=== PATIENT | female | born 1945 | race Caucasian/White ===

== ENCOUNTER → 2020-03-03 16:20 | Outpatient (CLI) | payer MEDICARE, SELFPAY ==
--- NOTE | ~2020-03-03 | MM_ITS ---
EXAMINATION: MM screening nancy BI w smiley HISTORY: Screening TECHNIQUE: Craniocaudal and mediolateral oblique 3-D tomosynthesis images were obtained and synthetic 2-D images were generated. CAD analysis was submitted and interpreted. COMPARISON: Comparison to multiple prior studies sequentially, with oldest reviewed study dated 08/09. BREAST PARENCHYMAL COMPOSITION: The breasts are heterogeneously dense, which may obscure small masses . FINDINGS: There is no evidence of suspicious mass, calcification, or architectural distortion to sugg est malignancy in either breast. There has been no suspicious interval change. IMPRESSION: 1. No mammographic evidence of malignancy. 2. Recommend routine screening mammography in one year. BI-RADS Category 1: Negative Reviewed, dictated and finalized at location A. FORCE DEVELOPMENT ASSISTANT
== END ==
DX: Z12.31 Encounter for screening mammogram for malignant neoplasm of breast (principal)
CPT/HCPCS: 77063; 77067

== ENCOUNTER → 2022-04-03 12:37 | Outpatient (CLI) | payer MEDICARE, SELFPAY ==
--- NOTE | ~2022-04-03 | MM_ITS ---
EXAMINATION: MM screening nancy BI w smiley HISTORY: Screening mammogram TECHNIQUE: Craniocaudal and mediolateral oblique 3-D tomosynthesis images were obtained and synthetic 2-D images were generated. CAD analysis was submitted and interpreted. COMPARISON: 03/03/2020, 11/14/2018, 10/22/2017 bilateral screening mammogram examinations BREAST PARENCHYMAL COMPOSITION: The breasts are heterogeneously dense, which may obscure small masses . FINDINGS: There is no evidence of suspicious mass, calcification, or architectural distortion to sugg est malignancy in either breast. There has been no suspicious interval change. IMPRESSION: 1. No mammographic evidence of malignancy. 2. Recommend routine screening mammography in one year. BI-RADS Category 1: Negative Reviewed, dictated and finalized at location A. TRY HUSBANDRY WORKER
== END ==
DX: Z12.31 Encounter for screening mammogram for malignant neoplasm of breast (principal)
CPT/HCPCS: 77063; 77067

== ENCOUNTER → 2022-11-05 10:59 | Outpatient (CLI) | payer MEDICARE, SELFPAY ==
--- NOTE | ~2022-11-05 | DEXA_ITS ---
Bone Density Report Name: KALYANI ROTH Age: 77 Sex: Female Ethnicity: White Date of : 1945 Indication: osteopenia; height loss; inflammatory bowel disease; postmenopausal Referring Provider: UNKNOWN, UNKNOWN Study: Bone densitometry was performed. Exam Date: November 05, 2022 Accession number: [id number] Bone Density: Region BMD T-score Z-score Classification AP Spine (L1, L2) 0.864 -1.0 1.2 Normal Femoral Neck (Left) 0.721 -1.2 0.9 Osteopenia Total Hip (Left) 0.809 -1.1 0.7 Osteopenia Femoral Neck (Right) 0.739 -1.0 1.1 Normal Total Hip (Right) 0.830 -0.9 0.9 Normal Total Hip Mean 0.820 -1.0 0.8 Normal World Health Organization criteria for BMD impression classify patients as: Normal (T-score at or above -1.0), Osteopenia (T-score between -1.0 and -2.5), or Osteoporosis (T-score at or below -2.5). 10-year Fracture Risk(1): Major Osteoporotic Fracture 10% Hip Fracture 1.7% Reported Risk Factors: [place] (), Neck BMD=0.721, BMI=26.0 (1) FRAX(R) Version 3.08. Fracture probability calculated for an untreated patient. Fracture probability may be lower if the patient has received treatment. Previous Exams: Region Exam Age BMD T-score BMD Change BMD Change Date g/cm2 vs Baseline vs Previous AP Spine(L1, L2) 11/05/2022 77 0.864 -1.0 -0.111* -0.039* 10/22/2017 72 0.903 -0.7 -0.072* -0.032* 03/04/2014 68 0.936 -0.4 -0.040* -0.040* 08/01/2006 60 0.975 0.0 Total Hip(Left) 11/05/2022 77 0.809 -1.1 -0.033* 0.017 10/22/2017 72 0.792 -1.2 -0.049* -0.028* 03/04/2014 68 0.820 -1.0 -0.022 -0.022 08/01/2006 60 0.842 -0.8 Total Hip(Right) 11/05/2022 77 0.830 -0.9 -0.031* 0.028* 10/22/2017 72 0.802 -1.1 -0.059* -0.014 03/04/2014 68 0.816 -1.0 -0.045* -0.045* 08/01/2006 60 0.861 -0.7 *Denotes significance at 95% confidence level, LSC for AP Spine = 0.022 g/cm2, LSC for Total Hip = 0.027 g/cm2 Clinical Information Provided by Patient: Has used the following medications: Vitamin D, Calcium, MULTI-VITAMIN Has the following medical conditions: Inflammatory bowel diseases Patient maximum height was 64 Menopause Age: 50 No regular weight bearing exercise Does not regularly consume dairy products Drinks caffeinated beverages Onset of menses at age 14 Number of children 1
== END ==
DX: Z78.0 Asymptomatic menopausal state (principal); M85.852 Other specified disorders of bone density and structure, left thigh
CPT/HCPCS: 77080

== ENCOUNTER 2024-12-21 13:11 | Outpatient (CLI) | payer MEDICARE, SELFPAY ==
--- NOTE | ~2024-12-21 | MM_ITS ---
EXAMINATION: MM screening nancy BI w smiley HISTORY: Screening TECHNIQUE: Craniocaudal and mediolateral oblique 3-D tomosynthesis images were obtained and synthetic 2-D images were generated. CAD analysis was submitted and interpreted. COMPARISON: Comparison to multiple prior studies sequentially, with oldest reviewed study dated 09/16/2016. BREAST PARENCHYMAL COMPOSITION: Dense: The breasts are extremely dense, which lowers the sensitivity of mammography. FINDINGS: There is no evidence of suspicious mass, calcification, or architectural distortion to suggest malignancy in either breast. There has been no suspicious interval change. IMPRESSION: 1. No mammographic evidence of malignancy. 2. Recommend routine screening mammography in one year. BI-RADS Category 1: Negative Reviewed, dictated and finalized at location B.
--- OUTSIDE RECORDS SUMMARY | 2024-12-21 15:11 | XMS_ITS | Encounter Summary ---
Author Organization [facility] Address [address] [place] [address] Care Team Providers Care Skewer Up Name Role Phone Ramon Junior MD Primary Care Provider [phone] Encounter Details Date Type Department Care Team (Latest Contact Info) Description 04/03/2001 Outpatient Historical HIS [facility] Trent Bailey MD [address] [facility] [address] [place] [address] SCREENING MAMM-MAILG NEOPL-OTHER (Primary Dx) Social History Tobacco Use Types Packs/Day Years Used Date Smoking Tobacco: Never Assessed Comments Unknown Sex and Gender Information Value Date Recorded Sex Assigned at Not on file 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
--- OUTSIDE RECORDS SUMMARY | 2024-12-21 15:11 | XMS_ITS | Encounter Summary ---
Author Organization [facility] Address 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
--- OUTSIDE RECORDS SUMMARY | 2024-12-21 15:11 | XMS_ITS | Clinical Summary ---
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 Gender Identity Not on file Sexual Orientation Not on file Plan of Treatment Health Maintenance Due Date Last Done Comments Hepatitis C 09/10/1965 DTaP, Tdap and Td Vaccines ( 1 - Tdap) 09/10/1966 Pneumococcal Vaccine: 50+ Ye ars (1 of 1 - PCV) 09/10/1997 Zoster Vaccines (1 of 2) 09/10/1997 Dexa Scan (General) 09/10/2012 RSV Immunization or 60+ Years (1 - 1-dose 75+ series) 09/10/2022 COVID-19 Vaccine ( - 2024-2 6 season) 2024 Influenza Adult (#1) 2024 Hepatitis A Vaccines Aged Out No long er eligible based on patient's age to complete this topic Meningococcal B Vaccine Aged Out No l onger eligible based on patient's age to complete this topic Meningococcal Vaccine Aged Out No elaine shanna eligible based on patient's age to complete this topic RSV Immunizations Under 20 Months Aged Out No longer eligible based on patient's age to complete this topic
--- OUTSIDE RECORDS SUMMARY | 2024-12-21 15:11 | XMS_ITS | Patient Health Record ---
Author Organization [email or web address] [facility] Address [address] [facility] [address] [place] [address] Care Team Providers Care Club Manager Name Role Phone Vernon TOLEDO, Ramon Primary Care Provider Bill Ruggiero Unavailable [phone] Reason For Referral No Information Plan Of Treatment No Information Insurance Providers Payer Name Payer Address Payer Phone Subscriber Number Group Number Insured Name Patient Relationship to Insured Coverage Start Date Coverage End Date [employer] Medicare Gold Advantage O [address] [place] [address] [id number] Gabrielle Beltrán Self - patient is the insured Medical (General) History Medical History History ICD Code Fatty Liver Crohn's Disease Surgical History Surgery Date(Month/Year) Back Surgery
--- OUTSIDE RECORDS SUMMARY | 2024-12-21 15:11 | XMS_ITS | Encounter Summary ---
Author Organization [facility] Address [address] [facility] [place] [address] Care Team Providers Care Brass Molder Helper Name Role Phone Unavailable Primary Care Provider Unavailabl e Encounter Details Date Type Department Care Team (Late st Contact Info) Description 06/24/2018 Lab Requisition [facility] Care [facility] [address] [facility] [place] [id number] Peg Simon MD [address] [facility] [address] [place] [address] Social History Tobacco Use Types Packs/Day Years Used Date Smoking Tobacco: Never Assessed Comments Unknown Sex and Gender Information Value Date Recorded Sex Assigned at Not on file Legal Sex Female 4:06 PM CDT Gender Identity Not on file Sexual Orientation Not on file documented as of this encounter Plan of Treatment Not on file documented as of this encounter Procedures Procedure Name Priority Date/Time Associated Diagnosis Comments DERMATOPATHOLOGY Routine 06/22/2018 12:0 0 AM CDT documented in this encounter Results * DERMATOPATHOLOGY (06/22/2018 12:00 AM CDT) Case Report Dermatopathology Report Case: [id number] Authorizing Provider: Peg Simon MD Collected: 06/22/2018 12:00 AM Pathologist: Pravin Guillen MD Received: 06/24/2018 06:15 AM Specimen: Skin, back 9 12:59 PM CDT DERMATOPATHOLOGY LABORATORY Final Diagnosis Specimen A. SKIN, back: BASAL CELL CARCINOMA, SUPERFICIAL MULTIFOCAL (C44.519) NOT PRESENT AT SAMPLED MARGIN 9 12:59 PM CDT DERMATOPATHOLOGY LABORATORY at 1259 CDT Clinical History [place] scaly papule, BCC. 9 12:59 PM CDT DERMATOPATHOLOGY LABORATORY Gross Description Specimen A: Received is one formalin filled container labeled with the patient's name and designated back. The specimen consists of a shave measuring [id number]. Jar 0. 12:59 PM [facility] DERMATOPATHOLOGY LABORATORY Microscopic Description Specimen A. SKIN, back: Attached to the undersurface of the epidermis, there are small aggregates of basaloid cells with a high nuclear to cytoplasmic ratio and peripheral palisading. This lesion is not present at the sampled margin of the specimen. 12:59 PM [facility] DERMATOPATHOLOGY LABORATORY Disclaimer An external and internal positive and negative controls are appropriate for the histochemical, immunohistochemical and immunofluorescence stain(s) in this case (if any), except where stated explicitly. The performance characteristics of the stain(s) cited in this report were developed and its performance characteristic determined by the Dermatopathology Laboratory at [facility], directed by Dr. Pierce Guillen. These tests need not be, and therefore are not, approved by the [place] Food and Drug Administration. The tests are used for clinical purposes. Billing Codes Specimen Charges Stain Charges 74074 1 12:59 PM T DERMATOPATHOLOGY LABORATORY Embedded Images 12:59 PM [facility] DERMATOPATHOLOGY LABORATORY Pathology/Cytolog y TISSUE SPECIMEN FROM SKIN / Unknown 06/22/2018 06/24/2018 6:15 AM CDT us Peg Simon MD LAB - PATHOLOGY/CYTOLOGY ORD ERABLES Final Result DERMATOPATHOLOGY LABORATORY [facility] - Department of Dermatology [address] [place] [address] [address] Lab [address] [place], [place] [address] [phone] documented in this encounter Visit Diagnoses Not on filedocumented in this encounter
--- OUTSIDE RECORDS SUMMARY | 2024-12-21 15:11 | XMS_ITS | Encounter Summary ---
Author Organization [facility] Address 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 [address] [place] [address] PCP - General 02/10/15 documented as of this encounter
--- OUTSIDE RECORDS SUMMARY | 2024-12-21 15:11 | XMS_ITS | Clinical Summary ---
Author Organization [facility] Address [address] [place] [address] Phone Care Team Providers Care Manufacturing Analyst Name Role Phone Ramon Junior MD Primary Care Provider Allergies Active Allergy Reactions Criticality Noted Date Comments Codeine Nausea and Vomiting Low 05/22/2016 Medications timolol (TIMOPTIC) 0.5 % solution Administer 1 Drop in both eyes daily. Active multivitamin (DAILY-AHSAN) tablet Take 1 Tablet by mouth daily. Active Fish Oil-Pelican-3 Fatty Acids 360-1,200 mg Capsule Take 1 Capsule by mouth 3 times daily. Active ZINC ACETATE ORAL Take by mouth daily. Active traMADol (ULTRAM) 50 mg tablet Take 2 Tablets (100 mg) by mouth every 6 hours as needed for Pain. 60 Tablet 7 Active docusate sodium (COLACE) 100 mg capsule Take 1 Capsule (100 mg) by mouth 2 times daily. 60 Capsule 6 7 Active diazePAM (VALIUM) 5 mg tablet Take 1 Tablet (5 mg) by mouth every 6 hours as needed for Spasm. 60 Tablet 7 Active HYDROcodone-lexy taminophen (NORCO) 10-325 mg Tablet Take 1 Tablet by mouth every 4 hours as needed (Pain). Max Daily Amount: 6 Tablets 60 Tablet 7 Active docusate sodium (COLACE) 100 mg capsule Take 1 Capsule (100 mg) by mouth 2 times daily. 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 Gender Identity Not on file Sexual Orientation Not on file Last Filed Vital Signs Vital Sign Reading Time Taken Comments Blood Pressure 119/70 06/10/2016 9:04 AM CDT Pulse 97 06/10/2016 9:04 AM CDT Temperature 36.6 C (97.9 F) 06/10/2016 9:04 AM CDT Respiratory Rate 16 06/10/2016 9:04 AM CDT Oxygen Saturation 100% 06/10/2016 9:04 AM CDT Inhaled Oxygen Concentration - - Weight 59 kg (130 lb) 06/07/2016 9:40 AM CDT Height 160 cm (5' 3) 05/22/2016 10:27 AM CDT Body Mass Index 23.03 05/22/2016 10:27 AM CDT Plan of Treatment Health Maintenance Due Date Last Done Comments DTAP/TDAP/TD VACCINES (1 - Tdap) 09/10/1966 ZOSTER VACCINE (1 of 2) 09/10/1997 OSTEOPOROSIS SCREENING 09/10/2012 PNEUMOCOCCAL VACCINE 50+ YEA RS (2 of 2 - PCV20 or PCV21) 06/10/2017 06/10/2016 RSV VACCINE (60+ or ) (1 - 1-dose 75+ series) 09/10/2022 INFLUENZA VACCINE (#1) 2024 03/22/2016 Medical Devices Implanted Type Area Provider Relations Rep Device Identifier Shelf Expiration Date Model / Serial / Lot [place] Dbm 8x10cm [id number] - [id number] Implanted:Qty: 1 on 06/07/2016 by Jairo Carr MD at [facility] Bone N/A: Spine Lumbar SPINALGRAFT TECH [employer] Private 01/08/2019 [id number] / [id number] / Description:REQ#[id number] Gerald Sextant 4.11p26ix [id number] - Sload 2 3, Sterile 06/05/16 Implanted:Qty: 2 on 06/07/2016 by Jairo Carr MD at [facility] Gerald N/A: Spine Lumbar [employer]- SOFAMOR DANEK [id number] / LOAD 2 3, STERILE 06/05/16 / Description:All Medtronic sp inal hardware was processed on requisition,[id number]. Screw Sextant Break-Off [id number] - [id number] Implanted:Qty: 4 on 06/07/2016 by Jairo Carr MD at [facility] Screw N/A: Spine Lumbar [employer]- SOFAMOR DANEK [id number] / / Screw Sextant 6.5x40mm [id number] - Sload 2 3, Sterile 06/05/16 Implanted:Qty: 4 on 06/07/2016 by Jairo Carr MD at [facility] Screw N/A: Spine Lumbar [employer]- SOFAMOR DANEK [id number] / LOAD 2 3, STERILE 06/05/16 / Sealant Floseal W/ Adptr 10ml [id number] - [id number] Implanted:Qty: 1 on 06/07/2016 by Jairo Carr MD at [facility] Sealant N/A: Spine Lumbar [employer]- [employer] 10/24/2017 [id number] / / [id number] Screws In Foot Rods In Bilateral Feet Expandable Interbody Device, Sofamor Danek Implanted:Qty: 1 on 06/07/2016 by Jairo Carr MD at [facility] N/A: Spine Lumbar [employer] 11/04/2023 [id number] / / [id number] Explanted Type Area Provider Relations Rep Device Identifier Shelf Expiration Date Model / Serial / Lot Guidwire Explanted:Qty: 6 on 06/07/2016 by Jairo Carr MD at [facility] Wire N/A: Spine Lumbar [employer] [id number] / / Description:load 3 5 sterile 01/30/16 This is charged in the supply list Advance Directives For more information, please contact: [phone] Documents on File Type Date Recorded Patient Yard Worker Expl anation Advance Directive POA 06/07/2016 10:23 AM Advance Directive POA * Full Code (Latest Code Status on File) Date Activated Date Inactivated Comments 06/07/2016 12:31 PM 06/10/2016 5:01 PM * Full Code Date Activated Date Inactivated Comments 06/07/2016 10:30 AM 06/07/2016 12:31 PM * Full Code Date Activated Date Inactivated Comments 06/07/2016 9:40 AM 06/07/2016 10:30 AM Care Teams Manufacturing Analyst Relationship Specialty Start Date End Date Ramon Junior MD [address] [place] [address] PCP - General 02/10/15
--- OUTSIDE RECORDS SUMMARY | 2024-12-21 15:11 | XMS_ITS | Clinical Summary ---
Author Organization [facility] Address [address] [place] [address] Care Team Providers Care Digester Hand Name Role Phone Unavailable Primary Care Provider Unavailabl e Source Comments [facility],non-owned Affiliates and Associated Physician Practices is amultiple site organization consisting of ambulatory clinics and hospital sitesin [place], [place], [place] and [place]. This disclosure is being madepursuant to the Care Everywhere program and may not contain all information available regarding this patient. Last updated 17.[facility] Social History Tobacco Use Types Packs/Day Years Used Date Smoking Tobacco: Never Assessed Comments Unknown Sex and Gender Information Value Date Recorded Sex Assigned at Not on file Legal Sex Female 4:06 PM CDT Gender Identity Not on file Sexual Orientation Not on file Plan of Treatment Health Maintenance Due Date Last Done Comments BONE DENSITY TESTING 1945 HEPATITIS C SCREENING 09/06/1965 DTAP/TDAP/TD VACCINES (1 - Tdap) 09/10/1966 PNEUMOCOCCAL VACCINE 50+ (1 of 1 - PCV) 09/10/1997 ZOSTER VACCINE (1 of 2) 09/10/1997 Respiratory Syncytial Virus (RSV) Vaccine Pt: or over 60 yrs (1 - 1-dose 75+ series) 09/10/2022 DEPRESSION SCREENING 02/25/2024 COVID-19 VACCINE (1 - 2023-2 5 season) 2024 INFLUENZA VACCINE (#1) 2024 HEPATITIS B VACCINE Aged Out No longe r eligible based on patient's age to complete this topic HIB VACCINE Aged Out No longer eligi ble based on patient's age to complete this topic HPV VACCINE Aged Out No longer eligi ble based on patient's age to complete this topic MENINGOCOCCAL (Group B) VACC INE SHARED DECISION-MAKING Aged Out No longer eligibl e based on patient's age to complete this topic MENINGOCOCCAL GROUPS A/C/Y/W VACCINE Aged Out No longer eligible b ased on patient's age to complete this topic
--- OUTSIDE RECORDS SUMMARY | 2024-12-21 15:11 | XMS_ITS | Encounter Summary ---
Author Organization [facility] Address [address] [place] [address] Care Team Providers Care Chief Administrative Officer Name Role Phone Unavailable Primary Care Provider Unavailabl e Encounter Details Date Type Department Care Team (Late st Contact Info) Description 07/17/2018 Lab Requisition [facility] Care [facility] Lab [address] [place] [id number] Peg Simon MD [address] [facility] [address] [place] [address] Social History Tobacco Use Types Packs/Day Years [...] Priority Date/Time Associated Diagnosis Comments DERMATOPATHOLOGY Routine 07/16/2018 12:0 0 AM CDT documented in this encounter Results * DERMATOPATHOLOGY (07/16/2018 12:00 AM CDT) Case Report Dermatopathology Report Case: [id number] Authorizing Provider: Peg Simon MD Collected: 07/16/2018 12:00 AM Pathologist: Pravin Guillen MD Received: 07/17/2018 06:39 AM Specimen: Skin, back 9 6:01 PM CDT DERMATOPATHOLOGY LABORATORY Final Diagnosis Specimen A. SKIN, back: DERMAL SCAR RESIDUAL BASAL CELL CARCINOMA NOT IDENTIFIED (L90.5) 9 6:01 PM CDT DERMATOPATHOLOGY LABORATORY at 1801 CDT Clinical History Bx proven BCC superficial multifocal, not present at sampled margin. Previous Bx: [id number]. 9 6:01 PM T DERMATOPATHOLOGY LABORATORY Gross Description Specimen A: Received is one formalin filled container labeled with the patient's name and designated back.The specimen consists of an ellipse measuring [id number] and is oriented with the notch at the 3 o'clock position, not labeled on the requisition. The epidermal surface consists of a centrally located 10x7mm previous biopsy site. The 12 to 6 o'clock margin is inked green. The 6 o'clock to 12 o'clock margin is inked black. The 12 o'clock tip is submitted in cassette 1. The 6 o'clock tip is submitted in cassette 2. The remainder of the ellipse is serially sectioned and submitted in cassettes 3-4. Jar 0. 9 6:01 PM T DERMATOPATHOLOGY LABORATORY Microscopic Description Specimen A. SKIN, back: There are fibroblasts and collagen bundles oriented parallel to the skin surface. There are elongated blood vessels, some of which are oriented perpendicular to the skin surface. No basal cell carcinoma is identified. 9 6:01 PM T DERMATOPATHOLOGY LABORATORY Disclaimer An external and internal positive and negative controls are appropriate for the histochemical, immunohistochemical and immunofluorescence stain(s) in this case (if any), except where stated explicitly. The performance characteristics of the stain(s) cited in this report were developed and its performance characteristic determined by the Dermatopathology Laboratory at [facility], directed by Dr. Pierce Guillen. These tests need not be, and therefore are not, approved by the [place] Food and Drug Administration. The tests are used for clinical purposes. Billing Codes Specimen Charges Stain Charges 40707 1 9 6:01 PM CDT DERMATOPATHOLOGY LABORATORY Embedded Images 9 6:01 PM T DERMATOPATHOLOGY LABORATORY Pathology/Cytolog y TISSUE SPECIMEN FROM SKIN / Unknown 07/16/2018 07/17/2018 6:39 AM CDT us Peg Simon MD LAB - PATHOLOGY/CYTOLOGY ORD ERABLES Final Result DERMATOPATHOLOGY LABORATORY [facility] - Department of Dermatology [address] [place] [address], 5th Floor Lab B [address] [phone] documented in this encounter Visit Diagnoses Not on filedocumented in this encounter
== END 2024-12-21 13:12 | disposition home or self-care (01) ==
LOC: CHSIMG 13:14
DX: Z12.31 Encounter for screening mammogram for malignant neoplasm of breast (principal)
CPT/HCPCS: 77063; 77067